=== PATIENT | female | born 1995 | race Caucasian/White ===

== ENCOUNTER 2024-04-19 15:20 | Emergency (ER) | payer MEDICAID, SELFPAY ==
[2024-04-19 16:05] VITALS: BP 137/85; PULSE 73; RESP 16; TEMP 36.9; O2SAT 99; BMI 29.5
--- NOTE | 2024-04-19 17:21 | EDNOTE_ITS ---
ED Wound/Laceration-RME/HPI General Chief Complaint: Wound/Laceration Stated Complaint: STAPH IN HER LEFT BACK Time Seen by Provider: 04/19/24 17:21 Arrival date/time: 04/19/24 15:20 This is a 29-year-old female that comes in with complaints of possible abscess to the left side of her back. Patient states that she has had staph in the past. Patient denies fever or chills. Patient denies any other past medical history. Limitations: no limitations Related Data Previous Rx's ?Medication ?Instructions ?Recorded promethazine 12.5 mg rectal 12.5 mg HI Q6HR #10 supp 11/06/13 suppository (Phenadoz) lorazepam 1 mg tablet 1 mg PO Q8HR PRN ANXIETY #20 tabs 11/08/13 Cyclobenzaprine * (FLEXERIL *) 10 mg PO Q8HR PRN spasm #20 tabs 04/22/16 ibuprofen 600 mg tablet 600 mg PO Q6HR PRN PAIN #40 tabs 04/22/16 ibuprofen 600 mg tablet 600 mg PO Q6H #30 tabs 03/02/20 fluticasone propionate 50 2 spray intranasal QDAY PRN 06/23/21 mcg/actuation nasal allergy symptoms #16 mL spray,suspension (Flonase Allergy Relief) guaifenesin 1,200 mg tablet, 1,200 mg PO BID #14 tabs 06/23/21 extended release 12 hr (Mucinex) diphenhydramine HCl 25 mg capsule 25 mg PO TID PRN allergic reaction 12/22/21 (Benadryl) #30 caps prednisone 50 mg tablet 50 mg PO QDAY #7 tabs 12/22/21 hydrocodone 5 mg-acetaminophen 325 1 tab PO BID PRN pain #6 tabs 04/05/22 mg tablet ibuprofen 800 mg tablet 800 mg PO TID PRN pain #30 tabs 04/05/22 ibuprofen 800 mg tablet (IBU) 800 mg PO Q8H #20 tabs 07/04/23 cephalexin 500 mg tablet 500 mg PO QID #14 tabs 04/19/24 doxycycline hyclate 100 mg tablet 100 mg PO BID #14 tabs 04/19/24 ibuprofen 800 mg tablet 800 mg PO Q6H PRN pain #14 tabs 04/19/24 Allergies Allergy/AdvReac Type Severity Reaction Status Date / Time No Known Allergies Allergy Verified 04/05/22 12:18 Review of Systems Review of Systems Systems Reviewed: All systems reviewed, normal except as documented Past Medical History Social History SMOKING STATUS: Never smoker ED Exam General Limitations: Present no limitations General appearance: Present alert and in no apparent distress Head Head exam: Present atraumatic Eye Eye exam: Present normal appearance, PERRL and EOMI ENT ENT exam: Present normal exam, normal oropharynx and mucous membranes moist Neck Neck exam: Present normal inspection, full ROM and trachea midline Chest Chest inspection: Present normal inspection and symmetric chest wall rise Respiratory Respiratory exam: Present normal lung sounds bilaterally Cardiovascular Cardiovascular exam: Present regular rate, normal rhythm and normal heart sounds Abdominal Exam Abdominal exam: Present soft Extremities Exam Extremities exam: Present normal inspection and full ROM Back Exam Back exam: Present normal inspection and full ROM Neurological Exam Neurological exam: Present alert, oriented X3 and CN II-XII intact Psychiatric Psychiatric exam: Present normal affect and normal mood Skin Skin exam: Present warm, dry and other (erythema, no flucutuance, to the left side of her back) Course Quality Measures none Orders Category Date Time Status Doxycycline [Vibramycin] Med 04/19/24 17:25 Discontinued 100 mg PO X1 ONE HYDROcodone*/APAP 5/325 [Warriors [place] 5/325] Med 04/19/24 17:25 Discontinued 1 tab PO X1 ONE Ibuprofen Tab [Motrin Tab] Med 04/19/24 17:25 Discontinued 800 mg PO X1 ONE cephALEXin [Keflex] Med 04/19/24 17:25 Discontinued 500 mg PO X1 ONE Vital Signs Vital signs: Vital Signs Temperature 98.4 F 04/19/24 16:05 Pulse Rate 73 04/19/24 16:05 Respiratory Rate 16 04/19/24 16:05 Blood Pressure 137/85 H 04/19/24 16:05 Pulse Oximetry (%) 99 04/19/24 16:05 Oxygen Delivery Method Room Air 04/19/24 16:05 Wound / Laceration MDM Narrative MDM Narrative:: will tx with antibiotcs and pain medication. Pt instruuted to use warm compresses every 4 hours Patient data External records reviewed:: [facility] previous records Clinical information provided by:: patient Social determinants that could affect healthcare access:: none Patient has the following chronic illnesses:: none How is presenting disease/condition affected by chronic disease/condition?: no chronic disease Evaluation data The following diagnostics were reviewed and interpreted by me:: other (specify) (none ) Lab and/or radiology exams considered but not ordered:: none Interpretation Summary: none Medications / Prescriptions Medications or Prescriptions considered but not ordered:: none Medication administrations:: Medication Administration History Discontinued Medications Hydrocodone Bitart/Acetaminophen (Hydrocodone/Apap 5/325 Tablet) 1 tab PO X1 ONE Stop: 04/19/24 17:26 Last Admin: 04/19/24 17:33 Dose: Not Given Documented By: OA Non-Admin Reason: Patient Refused Cephalexin HCl (Cephalexin 250 Mg Capsule) 500 mg PO X1 ONE Stop: 04/19/24 17:26 Last Admin: 04/19/24 17:33 Dose: 500 mg Documented By: OA Doxycycline Hyclate (Doxycycline 100 Mg Tablet) 100 mg PO X1 ONE Stop: 04/19/24 17:26 Last Admin: 04/19/24 17:33 Dose: 100 mg Documented By: OA Ibuprofen (Ibuprofen Tab 400 Mg Tablet) 800 mg PO X1 ONE Stop: 04/19/24 17:26 Last Admin: 04/19/24 17:33 Dose: 800 mg Documented By: OA see note Consultations Consultation(s) initiated? (list below): No Diagnosis Wound Differential Diagnosis: laceration, abscess, abrasion and other (cellulitis ) Most likely diagnosis given after review of the tests above:: cellulitis early abscess Admission Indicated Admission indicated?: not indicated Admission Request Was there a request for admission?: No Disposition Plan Disposition Plan: Discharge Discharge Attestation Discharge Attestation: The patient and all family members were given an opportunity to ask questions and understood the discharge instructions. Discharge instructions specifically effects, indications for sooner follow up or return to the emergency department, and the expected course of current diagnosis. Patient condition: Stable Discharge Plan Plan Patient Disposition: HOME (Self Care) Patient condition on transfer: Stable Prescriptions/Referrals Prescriptions/Med Rec: New doxycycline hyclate 100 mg tablet 100 mg PO BID Qty: 14 0RF ibuprofen 800 mg tablet 800 mg PO Q6H PRN (Reason: pain) Qty: 14 0RF cephalexin 500 mg tablet 500 mg PO QID Qty: 14 0RF No Action promethazine [Phenadoz] 12.5 MG suppository 12.5 mg HI Q6HR Qty: 10 0RF lorazepam 1 MG tablet 1 mg PO Q8HR PRN (Reason: ANXIETY) Qty: 20 0RF ibuprofen 600 MG tablet 600 mg PO Q6HR PRN (Reason: PAIN) Qty: 40 0RF Cyclobenzaprine * (FLEXERIL *) 10 MG tablet 10 mg PO Q8HR PRN (Reason: spasm) Qty: 20 0RF Mucinex 1,200 mg tablet extended release 12hr 1,200 mg PO BID Qty: 14 0RF fluticasone propionate [Flonase Allergy Relief] 50 mcg/actuation spray,suspension 2 spray intranasal QDAY PRN (Reason: allergy symptoms) Qty: 16 0RF Rx Instructions: administer into each nostril ibuprofen 600 mg tablet 600 mg PO Q6H Qty: 30 0RF prednisone 50 mg tablet 50 mg PO QDAY Qty: 7 0RF diphenhydramine HCl [Benadryl] 25 mg capsule 25 mg PO TID PRN (Reason: allergic reaction) Qty: 30 0RF ibuprofen 800 mg tablet 800 mg PO TID PRN (Reason: pain) Qty: 30 0RF hydrocodone-acetaminophen 5-325 mg tablet 1 tab PO BID MDD 10 PRN (Reason: pain) Qty: 6 0RF ibuprofen [IBU] 800 mg tablet 800 mg PO Q8H Qty: 20 0RF Problem List Clinical Impression: Cellulitis Patient/Caregiver Discharge Instructions Discharge Activity: activity as tolerated Education Materials: ED Cellulitis Additional Instructions: Use warm compresses every 4 hours to affected area. Take antibiotics as prescribed. May take ibuprofen for pain. Come back to the emergency room if symptoms change or worsen. Follow-up with primary provider in 1 to 2 days Print Language: Albanian Stand Alone Forms: Lynn Award Info., Patient Portal Info Letter PA/GROUP INSURANCE SPECIALIST Supervising Physician PA/GROUP INSURANCE SPECIALIST Supervising Physician: danette
[2024-04-19] MEDS: DOXYCYCLINE 100 MG TABLET PO (17:33)
[2024-04-19] MEDS: IBUPROFEN TAB 400 MG TABLET 800 MG PO (17:33)
[2024-04-19] MEDS: cephALEXin 250 MG CAPSULE 500 MG PO (17:33)
== END 2024-04-19 17:47 | disposition home or self-care (01) ==
PROVIDERS: Emergency Provider Emergency Medicine; PCP Family Medicine
DX: L03.312 Cellulitis of back [any part except buttock and flank] (principal)
CPT/HCPCS: 99283; A9270

== ENCOUNTER → 2024-11-19 | Outpatient (CLI) | payer MEDICAID, SELFPAY ==
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
== END | disposition home or self-care (01) ==
LOC: CDIM 13:15
PROVIDERS: Referring Provider Nurse Practitioner Family; Visit Provider Nurse Practitioner Family
DX: S43.101A Unspecified dislocation of right acromioclavicular joint, initial encounter (principal); V89.2XXA Person injured in unspecified motor-vehicle accident, traffic, initial encounter
CPT/HCPCS: 73030